=== PATIENT | male | born 1960 ===

== ENCOUNTER 2016-10-21 08:08 | Emergency (ER) | payer BC ==
--- NOTE | 2016-10-21 09:51 | UC ---
Ear Complaint HPI - HPI Summary HPI Summary: BOTH EARS PLUGGED SINCE LAST NIGHT. HEARING IS DECREASED. NO PAIN. TRIED TO FLUSH THEM OUT YESTERDAY AND SX WORSENED. NO URI SX. HAS TO HAVE EARS IRRIGATED EVERY COUPLE OF YEARS. DOES NOT USE Q-TIPS - History of Current Complaint Chief Complaint: UCEar Stated Complaint: PLUGGED EARS Time Seen by Provider: 10/21/16 09:42 Hx Obtained From: Patient Onset/Duration: Sudden Onset, Lasting Hours, Still Present Severity Initially: Moderate Severity Currently: Moderate Pain Intensity: 0 Pain Scale Used: 0-10 Numeric Aggravating Factors: Nothing Alleviating Factors: Nothing Associated Signs/Symptoms: Positive: Hearing Loss. Negative: Discharge, Trauma to Ear, URI Symptoms - Allergies/Home Medications Allergies/Adverse Reactions: Allergies Allergy/AdvReac Type Severity Reaction Status Date / Time No Known Allergies Allergy Verified 10/21/16 08:17 Home Medications: Home Medications NK [No Home Medications Reported] 10/21/16 [History Confirmed 10/21/16] PMH/Surg Hx/FS Hx/Imm Hx Previously Healthy: Yes - Surgical History Surgical History: None - Social History Alcohol Use: Weekly Substance Use Type: None Smoking Status (MU): Never Smoked Tobacco - Immunization History Most Recent Influenza Vaccination: none Review of Systems Constitutional: Negative ENT: Other - EARS PLUGGED Respiratory: Negative Cardiovascular: Negative Gastrointestinal: Negative All Other Systems Reviewed And Are Negative: Yes Physical Exam Triage Information Reviewed: Yes Appearance: Well-Appearing, No Pain Distress Vital Signs: Initial Vital Signs Temp 97.0 F 10/21/16 08:18 Pulse 50 10/21/16 08:18 Resp 16 10/21/16 08:18 BP 141/95 10/21/16 08:18 Pulse Ox 100 10/21/16 08:18 Vital Signs Reviewed: Yes Eyes: Positive: Conjunctiva Clear ENT: Positive: Pharynx normal, Other: - BILATERAL EACS FULL OF CERUMEN. TMS NORMAL AFTER CERUMEN IRRIGATED Neck: Positive: Supple, Nontender, No Lymphadenopathy Respiratory: Positive: No respiratory distress, No accessory muscle use Cardiovascular: Positive: Pulses Normal Abdomen Description: Positive: Soft Musculoskeletal: Positive: No Edema Neurological: Positive: Alert Psychological: Positive: Age Appropriate Behavior Skin: Negative: rashes Ear Complaint Course/Dx - Differential Dx/Diagnosis Provider Diagnoses: BILATERAL CERUMEN IMPACTION Discharge - Discharge Plan Condition: Stable Disposition: HOME Patient Education Materials: Cerumen Impaction (ED) Referrals: No Primary Care Phys,NOPCP [Primary Care Provider] -
== END 2016-10-21 10:13 | disposition home or self-care (01) ==
LOC: UCEAST 08:08
DX: H61.23 Impacted cerumen, bilateral (principal); R03.0 Elevated blood-pressure reading, without diagnosis of hypertension
CPT/HCPCS: 99203; G0463

== ENCOUNTER 2017-03-03 13:45 | Emergency (ER) | payer BC ==
--- NOTE | 2017-03-03 15:10 | UC ---
[facility] Dental HPI - HPI Summary HPI Summary: 5 day hx of right AC joint pain no trauma has not been able to chew (+) teeth not closing properly - History of Current Complaint Chief Complaint: UCDentalProblem Stated Complaint: JAW PAIN Time Seen by Provider: 03/03/17 14:26 Hx Obtained From: Patient Onset/Duration: Gradual Onset, Lasting Days Severity: Moderate Pain Intensity: 4 Pain Scale Used: 0-10 Numeric Aggravating: Chewing Alleviating: Nothing Related History: TMJ Dysfunction - Allergies/Home Medications Allergies/Adverse Reactions: Allergies Allergy/AdvReac Type Severity Reaction Status Date / Time No Known Allergies Allergy Verified 03/03/17 13:49 PMH/Surg Hx/FS Hx/Imm Hx Previously Healthy: Yes Cardiovascular History: Hypertension - untreated - Surgical History Surgical History: None - Family History Known Family History: Positive: Hypertension - Social History Alcohol Use: Weekly Substance Use Type: None Smoking Status (MU): Never Smoked Tobacco - Immunization History Most Recent Influenza Vaccination: none Review of Systems Constitutional: Negative Skin: Negative Eyes: Negative ENT: Negative Respiratory: Negative Cardiovascular: Negative Gastrointestinal: Negative Genitourinary: Negative Motor: Negative Neurovascular: Negative Musculoskeletal: Negative Neurological: Negative Psychological: Negative All Other Systems Reviewed And Are Negative: Yes Physical Exam Triage Information Reviewed: Yes Appearance: Well-Appearing, No Pain Distress, Well-Nourished Vital Signs: Initial Vital Signs Temp 98.8 F 03/03/17 13:46 Pulse 70 03/03/17 13:46 Resp 16 03/03/17 13:46 BP 170/98 03/03/17 13:46 Pulse Ox 99 03/03/17 13:46 Vital Signs Reviewed: Yes Eyes: Positive: Conjunctiva Clear ENT: Positive: Hearing grossly normal, Pharynx normal, TMs normal. Negative: Nasal congestion, Nasal drainage, Trismus, Muffled/hoarse voice Dental: Positive: Other: - right tmj tenderness/unable to close mouth completely Neck: Positive: Supple, Nontender, No Lymphadenopathy Respiratory: Positive: Lungs clear, Normal breath sounds, No respiratory distress Cardiovascular: Positive: No Murmur, Pulses Normal, Brisk Capillary Refill Musculoskeletal: Positive: ROM Intact, No Edema Neurological: Positive: Alert Skin Exam: Normal Dental Complaint Course/Dx - Course Course Of Treatment: advised of need for follow up with specialist/may need MRI - Differential Dx/Diagnosis Provider Diagnoses: Right TMJ dysfunction Discharge - Discharge Plan Condition: Stable Disposition: HOME Patient Education Materials: Temporomandibular Disorder (ED), Hypertension (ED) Referrals: [facility] [Outside] Pancho Montana MD [Doctor of Dental Medicine] - Serafin Cotter MD [Doctor of Dental Medicine] - Additional Instructions: you have a problem with your right TMJ joint It is preventing your jaw from closing you need to be seen by a specialist you may need an MRI ice no chew diet you need to find a local MD to follow your BP
== END 2017-03-03 15:25 | disposition home or self-care (01) ==
LOC: UCEAST 13:45
DX: M26.601 Right temporomandibular joint disorder, unspecified (principal)
CPT/HCPCS: 99211; G0463